=== PATIENT | female | born 1970 | race Caucasian/White ===

== ENCOUNTER 2025-03-05 13:48 | Emergency (ER) | payer OTHER ==
[~2025-03-05] VITALS: Ht 157.4 cm; Wt 77.1 kg
[~2025-03-05 13:48] MED LIST: BENADRYL25 M1 PO; PREDNICOT20 MG PO; RANITIDINE150 MG PO; ZANTAC 150150 MG PO
[2025-03-05] MEDS ORDERED: diazePAM 5 MG TAB PO ONE (14:20)
[2025-03-05] MEDS ORDERED: SODIUM CHLORIDE 0.9% 1,000 ML IV ONE (14:20)
[2025-03-05 14:57] LABS: BILIRUBIN Negative (Negative); BLOOD Negative (Negative); CLARITY Clear (Clear); COLOR Yellow (Yellow); KETONE Negative (Negative); LEUKO ESTERASE 1+ (Negative); NITRITE Negative (Negative); PH 6.0 (4.5-8.0); SPECIFIC GRAVITY <= 1.005 (1.001-1.030); UROBILINOGEN 0.2 E.U./dl (0.0-1.0)
[2025-03-05 15:07] LABS: BASO # 0.0 10*3/uL (0.0-0.1); BASO % 0.5 % (0.0-1.0); EOS # 0.1 10*3/uL (0.0-0.4); EOS % 1.0 % (1.0-4.0); MEAN CELL VOLUME 91.2 fl (81.0-99.0); MEAN CORPUSCULAR HGB 29.6 pg (27.0-31.0); MEAN PLATELET VOLUME 9.9 fl (9.6-12.3); MONO # 0.5 10*3/uL (0.1-1.0); MONO % 6.6 % (3.0-9.0); NEUT # 4.8 10*3/uL (2.3-7.9); NEUT % 57.9 % (47.0-73.0); NUCLEATED RED BLOOD CELL 0.0 % (0.0-0.0); NUCLEATED RED BLOOD CELL 0.0 10*3/uL (0.0-0.0); PLATELET COUNT AUTOMATED 206 10*3/uL (130-400); RED CELL DISTRI WIDTH 13.3 % (0-14.5)
[2025-03-05 15:27] LABS: ACT PARTIAL THROMBO TIME 23.3 SECONDS (20.0-32.1)
[2025-03-05 15:30] LABS: BUN 11 mg/dl (9-23); SGPT/ALT 23 U/L (5-49)
[2025-03-05] MEDS ORDERED: ANTIVERT25 M2 PO (17:34)
[2025-03-05] MEDS ORDERED: CIPRO500 MG PO (17:34)
== END 2025-03-05 17:43 | disposition home or self-care (01) ==
LOC: ED 13:48
PROVIDERS: Internal Medicine
DX: H81.10 Benign paroxysmal vertigo, unspecified ear (principal); N39.0 Urinary tract infection, site not specified; Z79.899 Other long term (current) drug therapy